=== PATIENT | female | born 1980 | race Caucasian/White ===

== ENCOUNTER → 2016-06-15 | Outpatient (CLI) | payer BC, OTHER ==
[~2016-06-15] MED LIST: DIPH25CA46 PO; EXEN2VIA SUBCUT; FAMO40TA7 PO; GLIP10TA11 PO; LEVO150T8 PO; LOSA25TA13 PO; METF-495 PO; PRED20TA PO
[2016-06-15 11:18] LABS: THYROID STIMULATING HORMONE 0.157 mIU/mL (0.358-3.740)
[2016-06-16 05:07] LABS: *TESTOSTERONE, SERUM 18 ng/dL (8-48); FOLLICLE STIMULATION HORMONE 3.7 mIU/mL (.); LUTEINIZING HORMONE 4.4 mIU/mL (.); PROLACTIN 5.2 ng/mL (4.8-23.3)
[2016-06-16 08:07] LABS: VIT D, 25-HYDROXY 25.3 ng/mL (30.0-100.0)
== END | disposition home or self-care (01) ==
LOC: LAB 09:49
PROVIDERS: ATTEND Family Medicine
DX: N92.0 Excessive and frequent menstruation with regular cycle (principal); E78.5 Hyperlipidemia, unspecified; E55.9 Vitamin D deficiency, unspecified; E03.9 Hypothyroidism, unspecified
CPT/HCPCS: 36415; 70030-TC; 82306; 82670; 83001; 83002; 84146; 84403; 84443

== ENCOUNTER 2017-04-30 19:29 | Outpatient (CLI) | payer BC, OTHER | END 2017-04-30 23:59 | disposition home or self-care (01) | LOC: LAB 19:29 | PROVIDERS: ATTEND Family Medicine | DX: N92.5 Other specified irregular menstruation (principal) | CPT/HCPCS: 36415; 84703 ==

== ENCOUNTER 2017-05-12 06:46 | Outpatient (CLI) | payer BC, OTHER | END 2017-05-12 23:59 | disposition home or self-care (01) | LOC: LAB 06:46 | PROVIDERS: ATTEND Obstetrics & Gynecology | DX: Z33.1 Pregnant state, incidental (principal) | CPT/HCPCS: 36415 ==

== ENCOUNTER 2017-05-24 10:02 | Outpatient (CLI) | payer BC, OTHER ==
[2017-05-24 11:13] LABS: THYROID STIMULATING HORMONE 7.654 mIU/mL (0.358-3.740)
== END 2017-05-24 23:59 | disposition home or self-care (01) ==
LOC: LAB 10:02
PROVIDERS: ATTEND Family Medicine
DX: O20.0 Threatened abortion (principal); Z3A.00 Weeks of gestation of pregnancy not specified
CPT/HCPCS: 36415; 84443; 86850; 86900; 86901

== ENCOUNTER → 2017-10-14 | Outpatient (CLI) | payer BC, OTHER | END | disposition home or self-care (01) | LOC: LAB 19:13 | PROVIDERS: ATTEND Family Medicine | DX: N92.5 Other specified irregular menstruation (principal) | CPT/HCPCS: 36415 ==

== ENCOUNTER 2017-10-23 14:14 | Outpatient (CLI) | payer BC, OTHER | END 2017-10-23 23:59 | disposition home or self-care (01) | LOC: LAB 14:14 | PROVIDERS: ATTEND Family Medicine | DX: Z33.1 Pregnant state, incidental (principal) | CPT/HCPCS: 36415 ==

== ENCOUNTER 2018-01-27 14:48 | Emergency (ER) | payer BC, OTHER ==
[~2018-01-27] VITALS: Ht 154.9 cm; Wt 74.8 kg
[2018-01-27] MEDS ORDERED: NEOMY/BACITRA/POLYMYXIN B OINT UD PACKET TP ONE ×2 (15:30→15:33)
--- NOTE | 2018-01-27 15:50 | NUR ---
DCD instructions and precription provided to pt. wound treated as ordered. .and patient instructed to monitor for s/s of complications.
[2018-01-27] MEDS ORDERED: CLINDAMYCIN HCL 300 MG CAPSULE ONE ×2 (15:58→15:59)
[2018-01-27] MEDS ORDERED: LEVOFLOXACIN 750 MG TABLET ONE (15:58)
[2018-01-27] MEDS ORDERED: CLINDAMYCIN HCL 150 MG CAPSULE PO ONE (16:00)
[2018-01-27] MEDS ORDERED: LEVOFLOXACIN 750 MG TABLET PO ONE (16:00)
[2018-01-29 08:09] LABS: HEPATITIS B SURFACE AB Reactive (.)
[2018-01-31 16:07] LABS: HEPATITIS B SURFACE AG Negative (Negative)
== END 2018-01-27 16:05 | disposition home or self-care (01) ==
LOC: ER 14:48
DX: S51.051A Open bite, right elbow, initial encounter (principal); K21.9 Gastro-esophageal reflux disease without esophagitis; E11.9 Type 2 diabetes mellitus without complications; E78.00 Pure hypercholesterolemia, unspecified; E03.9 Hypothyroidism, unspecified; Z88.0 Allergy status to penicillin; Z88.8 Allergy status to other drugs, medicaments and biological substances; Z79.84 Long term (current) use of oral hypoglycemic drugs; Z79.899 Other long term (current) drug therapy; W50.3XXA Accidental bite by another person, initial encounter; Y93.89 Activity, other specified; Y92.89 Other specified places as the place of occurrence of the external cause; Y99.8 Other external cause status
CPT/HCPCS: 36415; 86706; 86803; 87340; 87536; 87806; A4217; A4663

== ENCOUNTER 2018-07-08 08:36 | Outpatient (CLI) | payer BC, OTHER ==
[~2018-07-08 08:36] MED LIST changes: -LOSA25TA13 PO; +LOSA25TA27 PO
[2018-07-08 09:08] LABS: *BILIRUBIN,URIN NEGATIVE (NEGATIVE); *BLOOD, URINE 1+ (NEGATIVE); *CLARITY,URINE CLEAR (CLEAR); *COLOR,URINE YELLOW (YELLOW); *KETONES,URINE NEGATIVE (NEGATIVE); *UROBILINOGEN,URINE 0.2 E.U./dl (NORMAL); LEUKOCYTE ESTERASE ,URINE NEGATIVE (NEGATIVE); NITRITE, URINE NEGATIVE (NEGATIVE); UGLUCOSE NEGATIVE (NEGATIVE)
[2018-07-08 09:09] LABS: BASOPHILS % (AUTO) 0.4 % (0.0-2.0); EOSINOPHILS # (AUTO) 0.1 K/uL (0.0-0.7); EOSINOPHILS % (AUTO) 1.9 % (0.0-7.0); HEMATOCRIT 35.4 % (31.2-41.9); HEMOGLOBIN 11.2 g/dL (10.9-14.3); LYMPHOCYTES % (AUTO) 27.6 % (20.5-51.5); MEAN CORPUSCULAR HEMOGLOBIN 23.4 uug (24.7-32.8); MEAN CORPUSCULAR HGB CONC 32 g/dL (32.3-35.6); MEAN CORPUSCULAR VOLUME 73.7 fL (75.5-95.3); MONOCYTES # (AUTO) 0.3 K/uL (2.0-10.0); MONOCYTES % (AUTO) 4.1 % (0.0-11.0); NEUTROPHILS # (AUTO) 4.9 K/uL (1.8-8.9); PLATELET COUNT (AUTO) 227 K/uL (179-408); WHITE BLOOD COUNT (AUTO) 7.4 K/uL (3.8-11.8)
[2018-07-08 09:14] LABS: BACTERIA,URINE 2 /HPF (NONE SEEN); SQUAMOUS EPITHELIAL CELL,UR MANY /HPF (NONE SEEN); WBC,URINE NONE SEEN /HPF (0-3)
[2018-07-08 09:16] LABS: CREATININE 0.7 mg/dL (0.6-1.3); POTASSIUM 3.9 mmol/L (3.5-5.1)
[2018-07-08 10:04] LABS: EOSINOPHILS % (MANUAL) 3 % (0-8); LYMPHOCYTES % (MANUAL) 38 % (20-40); MONOCYTES % (MANUAL) 6 % (2-10); NEUTROPHILS % (MANUAL) 53 % (42-75)
== END 2018-07-08 23:59 | disposition home or self-care (01) ==
LOC: LAB 08:36
PROVIDERS: ATTEND Obstetrics & Gynecology
DX: Z01.812 Encounter for preprocedural laboratory examination (principal)
CPT/HCPCS: 36415; 85025; 85730; 86900; 86901; 87086

== ENCOUNTER 2018-07-11 11:20 | Inpatient (IN) | payer BC, OTHER ==
[~2018-07-11] VITALS: Ht 175.3 cm; Wt 82.6 kg
[2018-07-11 12:13] LABS: *URINE HCG, QUAL NEGATIVE (NEGATIVE)
[2018-07-11] MEDS ORDERED: CEFAZOLIN 50 ML IV ONE (12:22)
[2018-07-11] MEDS ORDERED: GLYCOPYRROLATE 0.2 MG/ML VIAL MC ONE (13:11)
[2018-07-11] MEDS ORDERED: ONDANSETRON 4 MG/2 ML VIAL IV ONE (13:11)
[2018-07-11] MEDS ORDERED: PROPOFOL 200 MG/20 ML BOTTLE IV ONE (13:11)
[2018-07-11] MEDS ORDERED: SEVOFLURANE 250 ML BOTTLE IH ONE (13:11)
[2018-07-11] MEDS ORDERED: NEOSTIGMINE METHYLSULFATE 10 MG/10 ML VIAL IV ONE (13:11)
[2018-07-11] MEDS ORDERED: IV LACTATED RINGERS SOLUTION 1,000 ML BAG IV ONE (13:11)
[2018-07-11] MEDS ORDERED: IV NORMAL SALINE 1000 ML BAG IV ONE (13:11)
[2018-07-11] MEDS ORDERED: METOCLOPRAMIDE HCL 10 MG/2 ML VIAL IV ONE (13:11)
[2018-07-11] MEDS ORDERED: BUPIVACAINE/EPI PF 0.25% 30 ML VIAL ONE (13:43)
[2018-07-11] MEDS ORDERED: MIDAZOLAM HCL 2 MG/2 ML VIAL ONE (14:02)
[2018-07-11] MEDS ORDERED: ROCURONIUM BROMIDE 50 MG/5 ML VIAL ONE (14:03)
[2018-07-11] MEDS ORDERED: FENTANYL CITRATE 250 MCG/5 ML AMPUL ONE (14:03)
[2018-07-11] MEDS ORDERED: CLINDAMYCIN PHOSPHATE 600 MG/4 ML VIAL ONE (14:28)
[2018-07-11] MEDS ORDERED: FENTANYL CITRATE 100 MCG/2 ML AMPUL ONE ×2 (15:38→16:00)
[2018-07-11] MEDS ORDERED: ONDANSETRON 4 MG/2 ML VIAL ONE ×2 (16:16→19:30)
[2018-07-11] MEDS ORDERED: HYDROMORPHONE 1 MG/1 ML DISP.SYRIN ONE (16:26)
[2018-07-11] MEDS ORDERED: KETOROLAC TROMETHAMINE 30 MG INJ ONE (16:27)
--- NOTE | 2018-07-11 17:00 | NUR ---
PATIENT CAME FROM HOME VIA RECOVERY ROOM SP SUPRAPERINEAL [place], RS AND RIGHT OVARIAN CYSTECTOMY BY DR OWENS FULLY AWAKE WITH EYES CLOSE C/O BEARABLE SURGICAL PAIN. ABDOMINAL DRESSING DRY AND INTACT, NO SIGNS OF SOILAGE OR ACTIVE BLEEDING. VS WNL SEE BIOMEDICAL ENGINEERING AIDE SHORT TERM VS. NO SS OF DISTRESS. O2 VIA NC 3L SATURATING 97%. ROUTINE POST-OP CARE DONE. AFSHAN CONLEY DRIVE THRU ORDER TAKER NOTIFIED THROUGH [facility] ABOUT PATIENT COMING TO MEDICAL FLOOR. AWAITING CALL BACK. ROUTINE ADMISSION ASSESSMENT INITIATED. FAMILY AT BEDSIDE ALL SUPPORTIVE WITH CARE
[2018-07-11 17:10] VITALS: BP 132/71
[2018-07-11 17:30] VITALS: BP 134/74
[2018-07-11 18:10] VITALS: BP 133/72
[2018-07-11] MEDS ORDERED: ONDANSETRON INJ 8 MG in IV NORMAL SALINE 50 ML IV PRN (18:15)
[2018-07-11] MEDS ORDERED: HYDROMORPHONE 1 MG/1 ML DISP.SYRIN IV PRN (18:15)
[2018-07-11] MEDS: IV NS 1000 ML 1,000 ML IV PRN (19:00)
--- NOTE | 2018-07-11 19:20 | NUR ---
RECEIVED PATIENT AWAKE IN BED. FAMILY PRESENT AT BEDSIDE. PATIENT IS C/O PAIN 10/10, LOWER ABDOMEN. S/P SURGERY. VSS. ON O2 3L NC SATING 98%. IVF INFUSING WELL TO RIGHT FA #20 GAUGE. NO RESP. DISTRESS NOTED. BILATERAL DVT PUMPS IN PLACE. F/C INTACT AND PATENT, NOTED TO GRAVITY. DRESSING NOTED TO ABDOMEN, C/D/I. CALL LIGHT IN REACH. ALL NEEDS ATTENDED.
[2018-07-11] MEDS: HYDROMORPHONE 2 MG/1 ML DISP.SYRIN IV PRN ×2 (19:25→22:43)
--- NOTE | 2018-07-11 19:25 | NUR ---
PATIENT GIVEN DILAUDID 2MG IV PER ADMINISTRATIVE INTERN. VSS. ON O2 3L NC SATING WELL. FAMILY PRESENT AT BEDSIDE. WILL CONTINUE TO MONITOR AND ASSESS.
[2018-07-11 19:44] VITALS: BP 108/60
--- NOTE | 2018-07-11 21:30 | NUR ---
PATIENT ASLEEP IN BED. EASILY AROUSABLE. PRESENT AT BEDSIDE. C/O PAIN, BUT TOLERABLE. PATIENT GIVEN I.S AND EDUCATED. VERBALIZED UNDERSTANDING. CALL LIGHT IN REACH. ALL NEEDS ATTENDED, WILL CONTINUE TO MONITOR AND ASSESS.
[2018-07-12] MEDS: IV NS 1000 ML 1,000 ML IV PRN (00:38)
[2018-07-12] MEDS: IV 1/2NS 1000 ML 1,000 ML IV PRN ×3 (02:48→19:32)
[2018-07-12 03:28] VITALS: BP 114/65
[2018-07-12] MEDS: HYDROMORPHONE 2 MG/1 ML DISP.SYRIN IV PRN ×2 (05:49→09:41)
[2018-07-12] MEDS: LEVOTHYROXINE SODIUM 175 MCG TABLET PO SCH (06:02)
--- NOTE | 2018-07-12 06:28 | NUR ---
PATIENT ASLEEP. AT BEDSIDE. PATIENT WAS PREVIOUSLY MEDICATED. VSS. IVF INFUSING WELL TO RIGHT FA. DRESSING NOTED TO ABDOMEN, C/D/I. ON O2 3L NC SATING 97%. CALL LIGHT IN REACH. ALL NEEDS ATTENDED. WILL CONTINUE TO MONITOR AND ASSESS.
[2018-07-12 06:30] LABS: BASOPHILS % (AUTO) 0.3 % (0.0-2.0); EOSINOPHILS % (AUTO) 0.5 % (0.0-7.0); HEMATOCRIT 31.3 % (31.2-41.9); HEMOGLOBIN 10.1 g/dL (10.9-14.3); LYMPHOCYTES # (AUTO) 1.4 K/uL (20.0-40.0); LYMPHOCYTES % (AUTO) 16.2 % (20.5-51.5); MEAN CORPUSCULAR HEMOGLOBIN 23.6 uug (24.7-32.8); MEAN CORPUSCULAR HGB CONC 32 g/dL (32.3-35.6); MEAN CORPUSCULAR VOLUME 73.4 fL (75.5-95.3); MONOCYTES # (AUTO) 0.5 K/uL (2.0-10.0); MONOCYTES % (AUTO) 6.2 % (0.0-11.0); NEUTROPHILS # (AUTO) 6.6 K/uL (1.8-8.9); NEUTROPHILS % (AUTO) 76.8 % (38.5-71.5); PLATELET COUNT (AUTO) 172 K/uL (179-408); RED BLOOD CELL COUNT(AUTO) 4.26 MIL/uL (3.63-4.92); WHITE BLOOD COUNT (AUTO) 8.6 K/uL (3.8-11.8)
[2018-07-12 06:42] LABS: CREATININE 0.6 mg/dL (0.6-1.3)
[2018-07-12] MEDS ORDERED: DEXTROSE 50% 50 ML DISP.SYRIN IV PRN (08:45)
[2018-07-12] MEDS ORDERED: MULTIVIT, IRON, MIN NO. 8, FA TABLET PO SCH (09:00)
[2018-07-12] MEDS: FERROUS SULFATE 325 MG TABEC PO SCH (09:25)
[2018-07-12] MEDS ORDERED: FERR325T28 PO (09:52)
[2018-07-12] MEDS ORDERED: LEVO175T2 PO (09:55)
[2018-07-12 11:30] VITALS: BP 101/59
[2018-07-12] MEDS: BLOOD SUGAR DIAGNOSTIC 1 EACH STRIP VI SCH ×3 (12:30→20:59)
[2018-07-12 15:48] VITALS: BP 128/81
[2018-07-12] MEDS: INSULIN REGULAR, HUMAN 300 UNIT/3 ML VIAL SQ PRN ×2 (16:21→20:58)
[2018-07-12] MEDS ORDERED: BLOO-1672 MC (16:25)
[2018-07-12] MEDS: HYDROMORPHONE 1 MG/1 ML DISP.SYRIN IVP PRN ×2 (17:46→21:39)
--- NOTE | 2018-07-12 18:15 | NUR ---
Pt ambulated to the bathroom, pt ambulated around the unit once, with at her side. Pt is now resting in bed with 3L NC, upon auscultation of abdomen pt has active bowel sounds in all four quadrants. Pt has not had a bowel movement. Pain is controlled with Dilaudid 1mg. pt shows no signs of respiratory distress.
--- NOTE | 2018-07-12 19:30 | NUR ---
PATIENT RECEIVED LYING IN BED WITH FAMILY AT BEDSIDE. A/OX4. NO SIGNS OF ACUTE DISTRESS. COMFORT MEASURES PROVIDED. BED IN LOWEST POSITION. SIDE RAILS X2.
[2018-07-12] MEDS: DOCUSATE SODIUM 100 MG CAPSULE PO SCH (20:52)
[2018-07-12 20:53] VITALS: BP 121/66
[2018-07-13] MEDS: IV 1/2NS 1000 ML 1,000 ML IV PRN ×2 (03:43→11:56)
--- NOTE | 2018-07-13 06:03 | NUR ---
PATIENT SLEEPING INTERMITTENTLY AND AT BEDSIDE. A/O X3. NO SIGNS OF ACUTE DISTRESS. COMFORT MEASURES PROVIDED. BED IN LOWEST POSITION. SIDE RAILX2. NO BLEEDING OBSERVED ON ABDOMEN GAUZE.
[2018-07-13] MEDS: LEVOTHYROXINE SODIUM 175 MCG TABLET PO SCH (06:35)
[2018-07-13] MEDS: BLOOD SUGAR DIAGNOSTIC 1 EACH STRIP VI SCH ×2 (06:39→11:50)
--- NOTE | 2018-07-13 07:10 | NUR ---
RECEIVED PATIENT ALERT AND ORIENTED X3. NO SIGNS OF ACUTE DISTRESS. COMFORT AND SAFETY MEASURES PROVIDED. BED IN LOWEST POSITION. SIDE RAILX2. NO BLEEDING OBSERVED ON ABDOMEN GAUZE. WILL CONTINUE TO MONITOR AND CONTINUE TREATMENT PLAN,
[2018-07-13] MEDS: HYDROMORPHONE 1 MG/1 ML DISP.SYRIN IVP PRN (07:34)
[2018-07-13] MEDS: INSULIN REGULAR, HUMAN 300 UNIT/3 ML VIAL SQ PRN ×2 (08:23→13:06)
[2018-07-13] MEDS: FERROUS SULFATE 325 MG TABEC PO SCH (09:21)
[2018-07-13] MEDS: DOCUSATE SODIUM 100 MG CAPSULE PO SCH (09:21)
[2018-07-13 11:12] VITALS: BP 112/49
[2018-07-13 15:44] VITALS: BP 117/68
[2018-07-13] MEDS ORDERED: DOCU100C36 PO (15:53)
[2018-07-13] MEDS ORDERED: HYDR-3326 PO (15:53)
--- NOTE | 2018-07-13 16:45 | NUR ---
RECEIVED DISCHARGE ORDER TO HOME. DISCHARGE INSTRUCTION AND PRESCRIBE MEDICATION GIVEN TO PATIENT , ABLE TO VERBALIZED UNDERSTANDING. NO C/O PAIN AT THIS TIME. NO SIGNS OF ACUTE DISTRESS. IV AND ID BAND REMOVED, BELONGING ACCOUNTED FOR AND SIGNED, QUESTION AND CONCERNS ADDRESSED
== END 2018-07-13 16:45 | disposition home or self-care (01) | DRG 743 ==
LOC: DS 11:20 → MEDSURG3 17:10
PROVIDERS: ADMIT Obstetrics & Gynecology; ATTEND Nurse Practitioner Acute Care
DX: N80.0 Endometriosis of uterus (principal); N93.8 Other specified abnormal uterine and vaginal bleeding; N84.0 Polyp of corpus uteri; N80.1 Endometriosis of ovary; E11.9 Type 2 diabetes mellitus without complications; E03.9 Hypothyroidism, unspecified; D50.9 Iron deficiency anemia, unspecified; D69.6 Thrombocytopenia, unspecified; Z83.3 Family history of diabetes mellitus; Z79.52 Long term (current) use of systemic steroids; Z79.84 Long term (current) use of oral hypoglycemic drugs
CPT/HCPCS: 36415; 84703; 85025; A4649; A4663; G0378; J0690; J1170; J1815; J1885; J2250; J2405; J2710; J2765; J3010; J3490; J7030; J7120; L8699

== ENCOUNTER 2019-08-01 19:42 | Emergency (ER) | payer BC, OTHER ==
[~2019-08-01] VITALS: Ht 154.9 cm; Wt 79.4 kg
[~2019-08-01 19:42] MED LIST changes: +BLOO-1672 MC; -DIPH25CA46 PO; +DOCU100C36 PO; -EXEN2VIA SUBCUT; -FAMO40TA7 PO; +FERR325T28 PO; -GLIP10TA11 PO; +HYDR-3326 PO; -LEVO150T8 PO; +LEVO175T2 PO; -LOSA25TA27 PO; -METF-495 PO; -PRED20TA PO
[2019-08-01] MEDS ORDERED: DULA0.75 SQ (20:36)
[2019-08-01] MEDS ORDERED: LEVO200T PO (20:36)
--- NOTE | 2019-08-01 20:55 | NUR ---
Dr. Abdi at bedside for MSE.
--- NOTE | 2019-08-01 21:44 | NUR ---
Pt seen today for R/O Covid 19 due to work exposure. Employee of [employer]. Stable condition, no active distress. Covid precautions maintained. Covid 19 test done, tolerated well. Patient discharged to home in stable condition. Written and verbal after care instructions given. Patient verbalizes understanding of instructions. Stressed follow up or return to ER for worsening s/s. Educated with Covid 19 home isolation procedures. Ambulated out of ER in steady gait.
[2019-08-01 21:46] VITALS: BP 148/96
== END 2019-08-01 21:48 | disposition home or self-care (01) ==
LOC: ER 19:47
DX: J02.8 Acute pharyngitis due to other specified organisms (principal); Z20.828 Contact with and (suspected) exposure to other viral communicable diseases; K21.9 Gastro-esophageal reflux disease without esophagitis; E11.9 Type 2 diabetes mellitus without complications; E03.9 Hypothyroidism, unspecified; E78.00 Pure hypercholesterolemia, unspecified; Z79.890 Hormone replacement therapy; Z79.899 Other long term (current) drug therapy
CPT/HCPCS: 99283; U0003; A4663

== ENCOUNTER 2020-05-05 07:05 | Outpatient (CLI) | payer BC, OTHER ==
[~2020-05-05 07:05] MED LIST changes: -DOCU100C36 PO; +DULA0.75 SQ; -FERR325T28 PO; -HYDR-3326 PO; -LEVO175T2 PO; +LEVO200T PO
[2020-05-05 07:28] LABS: BASOPHILS % (AUTO) 0.4 % (0.0-2.0); EOSINOPHILS # (AUTO) 0.2 K/uL (0.0-0.7); EOSINOPHILS % (AUTO) 2.2 % (0.0-7.0); HEMATOCRIT 41.3 % (31.2-41.9); LYMPHOCYTES % (AUTO) 20.7 % (20.5-51.5); MEAN CORPUSCULAR HEMOGLOBIN 28.1 uug (24.7-32.8); MEAN CORPUSCULAR HGB CONC 34 g/dL (32.3-35.6); MONOCYTES # (AUTO) 0.4 K/uL (2.0-10.0); MONOCYTES % (AUTO) 4.4 % (0.0-11.0); NEUTROPHILS % (AUTO) 72.3 % (38.5-71.5); PLATELET COUNT (AUTO) 134 K/uL (179-408); RED BLOOD CELL COUNT(AUTO) 4.98 MIL/uL (3.63-4.92); WHITE BLOOD COUNT (AUTO) 9.7 K/uL (3.8-11.8)
[2020-05-05 07:56] LABS: THYROID STIMULATING HORMONE 7.188 mIU/mL (0.358-3.740)
[2020-05-05 08:12] LABS: BILIRUBIN,TOTAL 0.7 mg/dL (0.2-1.0); CREATININE 0.9 mg/dL (0.6-1.3); POTASSIUM 4.3 mmol/L (3.5-5.1); TOTAL PROTEIN, SERUM 7.3 g/dL (6.4-8.2)
[2020-05-05 13:21] LABS: *BILIRUBIN,URIN NEGATIVE (NEGATIVE); *BLOOD, URINE NEGATIVE (NEGATIVE); *CLARITY,URINE CLEAR (CLEAR); *COLOR,URINE YELLOW (YELLOW); *KETONES,URINE NEGATIVE (NEGATIVE); *UROBILINOGEN,URINE 0.2 E.U./dl (NORMAL); LEUKOCYTE ESTERASE ,URINE NEGATIVE (NEGATIVE); NITRITE, URINE NEGATIVE (NEGATIVE); PH,URINE 6.5 (5.0-8.0)
[2020-05-05 13:22] LABS: UGLUCOSE 3+ (NEGATIVE)
[2020-05-05 16:14] LABS: BACTERIA,URINE RARE /HPF (NONE SEEN); RBC,URINE 0-3 /HPF (0-3); SQUAMOUS EPITHELIAL CELL,UR FEW /HPF (NONE SEEN); WBC,URINE 0-3 /HPF (0-3)
== END 2020-05-05 23:59 | disposition home or self-care (01) ==
LOC: LAB 07:05
PROVIDERS: ATTEND Family Medicine
DX: I10 Essential (primary) hypertension (principal); E11.65 Type 2 diabetes mellitus with hyperglycemia; E55.9 Vitamin D deficiency, unspecified; E11.21 Type 2 diabetes mellitus with diabetic nephropathy; K21.9 Gastro-esophageal reflux disease without esophagitis; M25.552 Pain in left hip
CPT/HCPCS: 36415; 82306; 82746; 84443; 85025; 86677

== ENCOUNTER → 2020-09-23 | Outpatient (CLI) | payer BC, OTHER ==
[2020-09-23 08:10] LABS: *BILIRUBIN,URIN NEGATIVE (NEGATIVE); *CLARITY,URINE CLEAR (CLEAR); *COLOR,URINE YELLOW (YELLOW); *KETONES,URINE NEGATIVE (NEGATIVE); LEUKOCYTE ESTERASE ,URINE NEGATIVE (NEGATIVE); NITRITE, URINE NEGATIVE (NEGATIVE); UGLUCOSE 3+ (NEGATIVE)
[2020-09-23 08:11] LABS: HEMATOCRIT 42.5 % (31.2-41.9); MEAN CORPUSCULAR HEMOGLOBIN 28.3 uug (24.7-32.8); MEAN CORPUSCULAR VOLUME 84.6 fL (75.5-95.3); PLATELET COUNT (AUTO) 161 K/uL (179-408)
[2020-09-23 08:12] LABS: *BLOOD, URINE TRACE (NEGATIVE)
[2020-09-23 08:24] LABS: BILIRUBIN,TOTAL 0.6 mg/dL (0.2-1.0); CREATININE 0.8 mg/dL (0.6-1.3); POTASSIUM 4.4 mmol/L (3.5-5.1); TOTAL PROTEIN, SERUM 6.9 g/dL (6.4-8.2)
[2020-09-23 08:25] LABS: THYROID STIMULATING HORMONE 6.231 mIU/mL (0.358-3.740)
[2020-09-23 14:04] LABS: BACTERIA,URINE NONE SEEN /HPF (NONE SEEN); SQUAMOUS EPITHELIAL CELL,UR FEW /HPF (NONE SEEN)
[2020-09-23 14:05] LABS: MUCUS,URINE FEW /LPF (0-FEW); URINE AMORPHOUS PHOSPHATES FEW /HPF
[2020-09-24 07:06] LABS: *MICROALBUMIN, UR 910.7 ug/mL (Not Estab.)
[2020-09-24 15:49] LABS: CREATININE, URINE 81.5
[2020-09-24 15:50] LABS: MICROALBUMIN/CREAT RATIO, UR 1117 High
== END | disposition home or self-care (01) ==
LOC: LAB 07:41
PROVIDERS: ATTEND Family Medicine
DX: E03.9 Hypothyroidism, unspecified (principal); I10 Essential (primary) hypertension; E55.9 Vitamin D deficiency, unspecified; E11.9 Type 2 diabetes mellitus without complications; E11.65 Type 2 diabetes mellitus with hyperglycemia
CPT/HCPCS: 36415; 82043; 82306; 82570; 84443; 85025; 87086

== ENCOUNTER → 2021-02-02 | Outpatient (CLI) | payer BC, OTHER ==
[2021-02-02 08:37] LABS: HEMATOCRIT 41.2 % (31.2-41.9); MEAN CORPUSCULAR HEMOGLOBIN 28.2 uug (24.7-32.8); PLATELET COUNT (AUTO) 165 K/uL (179-408)
[2021-02-02 08:44] LABS: THYROID STIMULATING HORMONE 1.692 mIU/mL (0.358-3.740)
[2021-02-02 10:18] LABS: BILIRUBIN,TOTAL 0.4 mg/dL (0.2-1.0); CREATININE 0.8 mg/dL (0.6-1.3); MAGNESIUM 1.8 mg/dL (1.8-2.4); POTASSIUM 4.2 mmol/L (3.5-5.1); URIC ACID 4.4 mg/dL (2.6-6.0)
[2021-02-02 11:07] LABS: *BILIRUBIN,URIN NEGATIVE (NEGATIVE); *BLOOD, URINE NEGATIVE (NEGATIVE); *CLARITY,URINE CLEAR (CLEAR); *COLOR,URINE YELLOW (YELLOW); *KETONES,URINE NEGATIVE (NEGATIVE); *UROBILINOGEN,URINE 0.2 E.U./dl (NORMAL); LEUKOCYTE ESTERASE ,URINE NEGATIVE (NEGATIVE); NITRITE, URINE NEGATIVE (NEGATIVE); UGLUCOSE TRACE (NEGATIVE)
[2021-02-02 13:34] LABS: BACTERIA,URINE NONE SEEN /HPF (NONE SEEN); RBC,URINE 0-3 /HPF (0-3); SQUAMOUS EPITHELIAL CELL,UR FEW /HPF (NONE SEEN); WBC,URINE 0-3 /HPF (0-3)
[2021-02-03 14:50] LABS: *MICROALBUMIN, UR 353.2; CREATININE, URINE 36.6
== END | disposition home or self-care (01) ==
LOC: LAB 08:03
PROVIDERS: ATTEND Family Medicine
DX: I10 Essential (primary) hypertension (principal); E11.65 Type 2 diabetes mellitus with hyperglycemia; E55.9 Vitamin D deficiency, unspecified; E03.9 Hypothyroidism, unspecified; E53.9 Vitamin B deficiency, unspecified
CPT/HCPCS: 36415; 82043; 82306; 82570; 83735; 84443; 84550; 85025